=== PATIENT | female | born 2000 | race Caucasian/White ===

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

== ENCOUNTER 2018-06-09 23:40 | Emergency (ER) | payer OTHER ==
[~2018-06-09] VITALS: Ht 162.6 cm; Wt 74.4 kg
[2018-06-09 23:50] VITALS: BP 110/72
[2018-06-10] MEDS ORDERED: KETOROLAC 60 MG/2 ML VIAL IM ONE (00:05)
[2018-06-10 00:15] VITALS: BP 110/72
== END 2018-06-10 00:15 | disposition home or self-care (01) ==
LOC: MED 23:40
DX: S00.33XA Contusion of nose, initial encounter (principal); E07.9 Disorder of thyroid, unspecified; Z79.899 Other long term (current) drug therapy; X58.XXXA Exposure to other specified factors, initial encounter; Y93.89 Activity, other specified; Y92.89 Other specified places as the place of occurrence of the external cause; Y99.8 Other external cause status
CPT/HCPCS: 96372; 99283; J1885

== ENCOUNTER 2019-06-05 06:31 | Emergency (ER) | payer OTHER ==
[~2019-06-05] VITALS: Ht 165.1 cm; Wt 77.1 kg
[2019-06-05 06:40] VITALS: BP 121/78
--- NOTE | 2019-06-05 06:40 | NUR ---
TO BED # 08 AMBULATORY
--- NOTE | 2019-06-05 06:41 | NUR ---
19/F PRESENTED TO ED C/O RT HAND PAIN AND LT HAND PAIN , RT HAND SWELLING S/P HITTING THE WALL X5 HOURS AGO. ABRASIONS TO 3RD AND 4TH DIGITS. LAC TO 4TH DIGIT. 7/10 THROBBING. NO SIGNS OF DISTRESS. EVEN UNLABORED BREATHING. CLEAR BILAT BREATH SOUNDS. VSS. WILL CONTINUE TO MONITOR.
--- NOTE | 2019-06-05 06:50 | NUR ---
PT WOUND SOAKED WITH COMBINATION OF SALINE AND BETADINE
--- NOTE | 2019-06-05 07:14 | NUR ---
BEDSIDE REPORT GIVEN TO ERIK HOUSTON.
--- NOTE | 2019-06-05 07:15 | NUR ---
XRAY AT BEDSIDE
--- NOTE | 2019-06-05 07:24 | NUR ---
REPORT RECEIVED FROM CHAR HOUSTON. PATIENT ALERT AND ORIENTED, STATES PAIN IS 7/10 WITH MOVEMENT. OFFERED PATIENT ICE PACK, PATIENT REFUSED. PATIENT STATES SHE IS COMFORTABLE AT THIS TIME. Addendum: 06/05/19 at 0726 by Marco Vasco PATIENT CAPILLARY REFILL < 3 SECONDS, RIGHT RADIAL PULSE +2, PATIENT STATES SHE IS UNABLE TO MOVE FINGERS DUE TO PAIN.
--- NOTE | 2019-06-05 07:42 | NUR ---
DOCTOR RIOS AT BEDSIDE
[2019-06-05] MEDS ORDERED: IBUPROFEN 600 MG TAB PO ONE (07:50)
--- NOTE | 2019-06-05 08:08 | NUR ---
MEDICATIONS MOTRIN AND TDAP ADMINISTERED, PATIENT SIGNED CONSENT FOR TDAP
[2019-06-05] MEDS ORDERED: BACITRACIN OINT 500 UNITS/GM PKT TP ONE ×2 (08:10)
--- NOTE | 2019-06-05 08:16 | NUR ---
MEDICATION BACITRACIN GIVEN TO PATIENT AND INSTRUCTED TO APPLY OINTMENT IN 2-3 DAYS PER DOCTOR RIOS.
--- NOTE | 2019-06-05 08:29 | NUR ---
PATIENT STATES PAIN IS 5/10 AFTER MOTRIN
--- NOTE | 2019-06-05 08:30 | NUR ---
Patient discharged with v/s stable. Written and verbal after care instructions given ABOUT HAND CONTUSION and explained. Patient alert, oriented and verbalized understanding of instructions. Ambulatory with steady gait. All questions addressed prior to discharge. ID band removed. Patient advised to follow up with PMD. Rx of IBUPROFEN given. Patient educated on indication of medication including possible reaction and side effects. Opportunity to ask questions provided and answered. PATIENT DISCHARGED WITH HAND WRAPPED WITH DRESSING PER PATIENTS REQUEST.
[2019-06-05 08:32] VITALS: BP 118/70
== END 2019-06-05 08:30 | disposition home or self-care (01) ==
LOC: MED 06:31
DX: S61.212A Laceration without foreign body of right middle finger without damage to nail, initial encounter (principal); S61.214A Laceration without foreign body of right ring finger without damage to nail, initial encounter; S63.92XA Sprain of unspecified part of left wrist and hand, initial encounter; S63.91XA Sprain of unspecified part of right wrist and hand, initial encounter; E07.9 Disorder of thyroid, unspecified; Z79.899 Other long term (current) drug therapy; W22.01XA Walked into wall, initial encounter; Y93.89 Activity, other specified; Y92.89 Other specified places as the place of occurrence of the external cause; Y99.8 Other external cause status
CPT/HCPCS: 12001; 73130; 90471; 90715; 99284; Q0092; 99283

== ENCOUNTER 2020-02-18 04:45 | Emergency (ER) | payer OTHER ==
[~2020-02-18] VITALS: Ht 162.6 cm; Wt 78.5 kg
[2020-02-18 04:53] VITALS: BP 134/70
--- NOTE | 2020-02-18 05:03 | NUR ---
PT TAKEN TO BED 4
--- NOTE | 2020-02-18 05:05 | NUR ---
PT 19 Y/O FEMALE BIB SELF FOR C/O BARRIOS 10/10 X 1 DAY. PT STATES WOKE UP YESTERDAY WITH BARRIOS, DIZZYNESS, AND N/V X 2 EPISODES. PT STATES SHE TOOK PTC MEDICATIONS PRIOR TO GOING TO BED FOR PAIN WITH INEFFECTIVE RESULTS. PT STATES WOKE UP SUDDENLY X 3.5 HOURS AGO WITH 10/10 BARRIOS, SHARP, CONTINOUS, AND NON RADIATING. PT AAO X4. PERRL 3MM BRISK, BILAT. PT CONTINUES WITH C/O NAUSEA BUT NO FURTHER EPISODES OF VOMITING. PT ADMITS TO SENSITIVITY TO LIGHT. PT HAS FACE SYMMETRY, EQUAL ARM STRENGTH, AND ABLE TO AMBUALTE WITH STEADY GAIT. PT BED IS LOCKED AND IN LOWEST POSTION. SIDE RAIL UP X 1. MEDHX: HYPOTHYROID, MIGRAINES NKA
--- NOTE | 2020-02-18 05:11 | NUR ---
ERMD AT BEDSIDE.
--- NOTE | 2020-02-18 05:16 | NUR ---
CALLED DIRECTOR OF HOTEL FOR CODE BRAIN
--- NOTE | 2020-02-18 05:18 | NUR ---
PT TAKEN TO CT
[2020-02-18] MEDS ORDERED: METOCLOPRAMIDE 10 MG/2 ML INJ VIAL IVP STA (05:21)
[2020-02-18] MEDS ORDERED: ACETAMINOPHEN 325 MG TAB PO STA (05:21)
[2020-02-18] MEDS ORDERED: NACL 0.9% 1,000 ML IV ONE (05:25)
--- NOTE | 2020-02-18 05:26 | NUR ---
PT RETURN FROM CT
[2020-02-18] MEDS ORDERED: ACETAMINOPHEN EXTRA STRENGTH 500 MG TAB ONE (05:28)
--- NOTE | 2020-02-18 05:28 | NUR ---
ERMD AT BEDSIDE.
--- NOTE | 2020-02-18 05:30 | NUR ---
IV PLACED IN R AC 20G. IV SITE IS PATENT.
--- NOTE | 2020-02-18 05:35 | NUR ---
0.9% NS 1L BOLUS RUNNING CONTINOUSLY IN R AC. PT ALSO GIVEN REGLAN 10MG IVP AND TYLENOL 1G PO.
--- NOTE | 2020-02-18 06:25 | NUR ---
ERMD AT BEDSIDE.
[2020-02-18 06:38] LABS: EOSINOPHILS # (AUTO) 0.2 K/uL (0-0.4); HEMATOCRIT 38.6 % (36-48); HEMOGLOBIN 12.6 g/dL (12.0-16.0); LYMPHOCYTES # (AUTO) 0.7 K/uL (2.5-16.5); MEAN CORPUSCULAR HEMOGLOBIN 29 pg (27-31); MEAN CORPUSCULAR HGB CONC 33 g/dL (33-37); MEAN CORPUSCULAR VOLUME 87.9 fL (80-94); MONOCYTES # (AUTO) 0.9 K/uL (0.8-1.0); NEUTROPHILS # (AUTO) 2.8 K/uL (1.8-7.7); PLATELET COUNT (AUTO) 254 K/uL (140-450); RED BLOOD CELL COUNT(AUTO) 4.39 MIL/uL (4.20-5.40); RED CELL DISTRIBUTION WIDTH 13.1 % (11.6-13.7)
--- NOTE | 2020-02-18 06:38 | NUR ---
PT STATES BARRIOS PAIN IS REDUCED FROM 10/10 TO 5/10 PAIN. PT STATES PAIN IS TOLERABLE.
--- NOTE | 2020-02-18 06:45 | NUR ---
IV removed, catheter intact and site benign. Applied folded 4x4 gauze and tape to stop bleeding.
[2020-02-18 06:49] VITALS: BP 134/70
--- NOTE | 2020-02-18 06:49 | NUR ---
Patient discharged with v/s stable. Written and verbal after care instructions given and explained. Patient alert, oriented and verbalized understanding of instructions. Ambulatory with steady gait. All questions addressed prior to discharge. ID band removed. Patient advised to follow up with PMD. Rx of FIORICET given. Patient educated on indication of medication including possible reaction and side effects. Opportunity to ask questions provided and answered.
[2020-02-18 07:00] LABS: ANION GAP 13.9 (8-16); CARBON DIOXIDE 23.5 mmol/L (21-32); CREATININE 0.6 mg/dL (0.6-1.3); POTASSIUM 3.4 mmol/L (3.5-5.1)
[2020-02-18 07:05] LABS: WHITE BLOOD COUNT (AUTO) 4.6 K/uL (4.8-10.8)
== END 2020-02-18 06:49 | disposition home or self-care (01) ==
LOC: MED 04:45
DX: G43.909 Migraine, unspecified, not intractable, without status migrainosus (principal); R11.10 Vomiting, unspecified; E03.9 Hypothyroidism, unspecified; Z79.899 Other long term (current) drug therapy
CPT/HCPCS: 36415; 70450; 80048; 81025; 85025; 96374; 99284; J2765; J7030

== ENCOUNTER 2020-05-01 17:42 | Emergency (ER) | payer OTHER ==
[~2020-05-01] VITALS: Ht 162.6 cm; Wt 74.8 kg
--- NOTE | 2020-05-01 17:45 | NUR ---
PT TAKEN TO BED 7.
[2020-05-01 17:50] VITALS: BP 135/81
--- NOTE | 2020-05-01 17:51 | NUR ---
PT CAME IN FOR SUTURE REMOVAL TO THE LEFT WRIST, PT STATED HAD THE SUTURE IN [facility] DUE TO ATTEMPTED SUICIDE. PT DENIES SUICIDE IDEATION AT THIS MOMENT. NKA PMH: ANXIETY, DEPRESSION, HYPOTHYROID. RX: LEVOTHYROXIDE.
--- NOTE | 2020-05-01 18:00 | NUR ---
SHANDA Palafox at bedside examining pt
--- NOTE | 2020-05-01 18:14 | NUR ---
SUTURES REMOVED AND STERISTRIPS PLACED. PT TOLERATD WELL.
[2020-05-01 18:21] VITALS: BP 135/81
--- NOTE | 2020-05-01 18:21 | NUR ---
Patient discharged with v/s stable. Written and verbal after care instructions given and explained. Patient alert, oriented and verbalized understanding of instructions. Ambulatory with steady gait. All questions addressed prior to discharge. ID band removed. Patient advised to follow up with PMD. Rx of BACITRACIN 500 UNIT/G given. Patient educated on indication of medication including possible reaction and side effects. Opportunity to ask questions provided and answered.
== END 2020-05-01 18:21 | disposition home or self-care (01) ==
LOC: MED 17:42
DX: S61.412D Laceration without foreign body of left hand, subsequent encounter (principal); F41.9 Anxiety disorder, unspecified; F32.9 Major depressive disorder, single episode, unspecified; E07.9 Disorder of thyroid, unspecified; X58.XXXD Exposure to other specified factors, subsequent encounter; Z48.00 Encounter for change or removal of nonsurgical wound dressing
CPT/HCPCS: 99282

== ENCOUNTER 2021-05-15 15:07 | Emergency (ER) | payer OTHER ==
[~2021-05-15] VITALS: Ht 162.6 cm; Wt 88.5 kg
[2021-05-15 15:32] VITALS: BP 126/95
[2021-05-15] MEDS ORDERED: NAPR-54 PO (15:36)
[2021-05-15] MEDS ORDERED: METH-1681 PO (15:36)
--- NOTE | 2021-05-15 15:49 | NUR ---
NO NURSING INTERVENTIONS NEEDED, NO COMPLETE ASSESSMENT.
[2021-05-15 15:50] VITALS: BP 126/91
--- NOTE | 2021-05-15 15:55 | NUR ---
Patient discharged with v/s stable. Written and verbal after care instructions given and explained. Patient alert, oriented and verbalized understanding of instructions. Ambulatory with steady gait. All questions addressed prior to discharge. ID band removed. Patient advised to follow up with PMD. Rx of ROBAXIN AND NAPROSYN given. Patient educated on indication of medication including possible reaction and side effects. Opportunity to ask questions provided and answered.
== END 2021-05-15 15:52 | disposition home or self-care (01) ==
LOC: MED 15:07
DX: S39.012A Strain of muscle, fascia and tendon of lower back, initial encounter (principal); E07.9 Disorder of thyroid, unspecified; Z79.899 Other long term (current) drug therapy; X58.XXXA Exposure to other specified factors, initial encounter; Y93.89 Activity, other specified; Y92.89 Other specified places as the place of occurrence of the external cause; Y99.8 Other external cause status
CPT/HCPCS: 99283

== ENCOUNTER 2021-10-30 07:17 | Emergency (ER) | payer MEDICAID, OTHER ==
[~2021-10-30] VITALS: Ht 162.6 cm; Wt 91.6 kg
[~2021-10-30 07:17] MED LIST changes: +METH-1681 PO; +NAPR-54 PO
[2021-10-30 07:24] VITALS: BP 129/77
--- NOTE | 2021-10-30 07:51 | NUR ---
21 y/o female states she has been very stressed since saturday. she has been having a headache which has been persistant, along with a syncope yesterday at noon witnessed by hailee. no head trauma. no nausea no vomiting. patient denies any suicidal ideation at this time denies dts and denies dto
[2021-10-30] MEDS ORDERED: LORazepam 2 MG/ML VIAL IVP ONE (07:55)
[2021-10-30] MEDS ORDERED: KETOROLAC 30 MG/ML VIAL IVP ONE (07:55)
[2021-10-30] MEDS ORDERED: NACL 0.9% 1,000 ML IV ONE (07:55)
[2021-10-30 08:45] LABS: BASOPHILS % (AUTO) 0.3 % (0.0-2.0); EOSINOPHILS % (AUTO) 0.1 % (0.0-4.0); HEMATOCRIT 37.8 % (36-48); HEMOGLOBIN 12.7 g/dL (12.0-16.0); LYMPHOCYTES # (AUTO) 1.2 K/uL (2.5-16.5); LYMPHOCYTES % (AUTO) 35.9 % (20.5-51.1); MEAN CORPUSCULAR HEMOGLOBIN 28 pg (27-31); MEAN CORPUSCULAR HGB CONC 34 g/dL (33-37); MEAN CORPUSCULAR VOLUME 84.4 fL (80-94); MONOCYTES # (AUTO) 0.2 K/uL (0.8-1.0); MONOCYTES % (AUTO) 6.8 % (1.7-9.3); NEUTROPHILS % (AUTO) 56.9 % (42.2-75.2); PLATELET COUNT (AUTO) 259 K/uL (140-450); RED BLOOD CELL COUNT(AUTO) 4.48 MIL/uL (4.20-5.40); RED CELL DISTRIBUTION WIDTH 13.2 % (11.6-13.7); WHITE BLOOD COUNT (AUTO) 3.5 K/uL (4.8-10.8)
[2021-10-30 09:18] LABS: ALBUMIN 4.1 g/dL (3.4-5.0); ANION GAP 11.4 (8-16); CARBON DIOXIDE 22.7 mmol/L (21-32); CREATININE 0.8 mg/dL (0.6-1.3); POTASSIUM 4.1 mmol/L (3.5-5.1); TOTAL BILIRUBIN 0.3 mg/dL (0.0-1.0)
[2021-10-30] MEDS ORDERED: ACET-10509 PO (09:54)
[2021-10-30] MEDS ORDERED: METO-486 PO (09:54)
[2021-10-30] MEDS ORDERED: IBUP-2213 PO (09:54)
[2021-10-30 10:15] VITALS: BP 114/76
--- NOTE | 2021-10-30 10:17 | NUR ---
Patient discharged with v/s stable. Written and verbal after care instructions given and explained. Patient alert, oriented and verbalized understanding of instructions. Ambulatory with steady gait. All questions addressed prior to discharge. ID band removed. IV DISCONTINUED AND REMOVED. Patient advised to follow up with PMD. Rx of ACETAMINOPHEN, IBUPROFEN AND REGLAN given. Patient educated on indication of medication including possible reaction and side effects. Opportunity to ask questions provided and answered.
--- NOTE | 2021-10-30 10:17 | NUR ---
PATIENT TOLLERATED IV FLUIDS AND MEDICATION WELL, PATIENT DENIES ANY PAIN AT THIS TIME AND STATES SHE FEELS BETTER.
== END 2021-10-30 10:15 | disposition home or self-care (01) ==
LOC: MED 07:17
DX: R55 Syncope and collapse (principal); R51.9 Headache, unspecified; F41.9 Anxiety disorder, unspecified; E07.9 Disorder of thyroid, unspecified; F12.90 Cannabis use, unspecified, uncomplicated; Z79.899 Other long term (current) drug therapy
CPT/HCPCS: 36415; 70450; 80053; 81025; 85025; 93005; 96361; 96374; 96375; 99285; J1885; J2060; J7030

== ENCOUNTER 2022-05-27 07:50 | Emergency (ER) | payer MEDICAID, OTHER ==
[~2022-05-27] VITALS: Ht 162.6 cm; Wt 89.8 kg
[~2022-05-27 07:50] MED LIST changes: +ACET-10509 PO; +IBUP-2213 PO; +METO-486 PO
[2022-05-27 07:57] VITALS: BP 127/91
--- NOTE | 2022-05-27 08:09 | NUR ---
C/O SWELLING ON LIPS, CHEEKS AND HANDS XTODAY AFTER CONTACT WITH DOG FUR YESTERDAY. SATTING AT 98% ROOM AIR. SPEAKING IN FULL SENTENCES, NO WOB NOTED, ITCHING NKA PMH: DENIES
--- NOTE | 2022-05-27 08:09 | NUR ---
DR BREWER AT PT SIDE FOR EVAL
[2022-05-27] MEDS ORDERED: predniSONE 20 MG TAB PO ONE (08:15)
[2022-05-27] MEDS ORDERED: BEN50 PO (08:38)
[2022-05-27] MEDS ORDERED: PRED20TA5 PO (08:38)
--- NOTE | 2022-05-27 08:46 | NUR ---
Patient discharged with v/s stable. Written and verbal after care instructions ABOUT ANGIODEMEDA given and explained. Patient alert, oriented and verbalized understanding of instructions. Ambulatory with steady gait. All questions addressed prior to discharge. ID band removed. Patient advised to follow up with PMD. Rx of PREDNISONE, BENADRYL given. Patient educated on indication of medication including possible reaction and side effects. Opportunity to ask questions provided and answered.
== END 2022-05-27 08:46 | disposition home or self-care (01) ==
LOC: MED 07:50
DX: T78.40XA Allergy, unspecified, initial encounter (principal); E07.9 Disorder of thyroid, unspecified; Z79.899 Other long term (current) drug therapy; X58.XXXA Exposure to other specified factors, initial encounter
CPT/HCPCS: 99283; J7512; Q0163

== ENCOUNTER 2022-07-22 04:43 | Emergency (ER) | payer OTHER ==
[~2022-07-22] VITALS: Ht 165.1 cm; Wt 89.8 kg
[~2022-07-22 04:43] MED LIST changes: +BEN50 PO; +PRED20TA5 PO
[2022-07-22 04:46] VITALS: BP 111/73
--- NOTE | 2022-07-22 05:00 | NUR ---
PT TO BED 6
--- NOTE | 2022-07-22 05:34 | NUR ---
Patient being evaluated by physician at bedside.
--- NOTE | 2022-07-22 05:34 | NUR ---
Dr. Greenberg examining patient.
[2022-07-22] MEDS ORDERED: methylPREDNISolone SS 125 MG in WATER STERILE 2 ML IV ONE (05:45)
[2022-07-22] MEDS ORDERED: diphenhydrAMINE 50 MG/ML VIAL IVP ONE (05:45)
[2022-07-22] MEDS ORDERED: FAMOTIDINE 20 MG/2 ML VIAL IVP ONE (05:45)
[2022-07-22] MEDS ORDERED: NACL 0.9% 1,000 ML IV ONE (05:45)
[2022-07-22] MEDS ORDERED: FAMO-90 PO (06:00)
[2022-07-22] MEDS ORDERED: DIPH25TA53 PO (06:00)
[2022-07-22] MEDS ORDERED: EPIN1KIT31 IM (06:00)
[2022-07-22] MEDS ORDERED: PRED20TA5 PO (06:00)
--- NOTE | 2022-07-22 07:10 | NUR ---
IV removed, catheter intact and site benign. Applied folded 4x4 gauze and tape to stop bleeding.
[2022-07-22 07:13] VITALS: BP 110/68
--- NOTE | 2022-07-22 07:13 | NUR ---
Patient discharged with v/s stable. Written and verbal after care instructions given and explained about angioedema, food allergy, and anaphylactic reaction. Patient alert, oriented and verbalized understanding of instructions. Ambulatory with steady gait. All questions addressed prior to discharge. ID band removed. Patient advised to follow up with PMD. Rx of Benadryl, epipen, pepcid, and deltasone given. Patient educated on indication of medication including possible reaction and side effects. Opportunity to ask questions provided and answered.
[2022-07-22] MEDS ORDERED: methylPREDNISolone SS 125 MG/2 ML VIAL IVP ONE (08:30)
== END 2022-07-22 07:13 | disposition home or self-care (01) ==
LOC: MED 04:43
DX: T78.40XA Allergy, unspecified, initial encounter (principal); E07.9 Disorder of thyroid, unspecified; Z79.899 Other long term (current) drug therapy; X58.XXXA Exposure to other specified factors, initial encounter
CPT/HCPCS: 96361; 96374; 96375; 99284; J1200; J3490